=== PATIENT | male | born 1985 | race Hispanic/Latino ===

== ENCOUNTER 2018-08-25 04:10 | Emergency (ER) | payer SELFPAY ==
[2018-08-25 04:53] LABS: Absolute Lymphocytes (CBC) 2.9 K/uL (0.7-4.9); Absolute Monocytes 0.9 K/uL (0.1-1.3); Absolute Neutrophil 5.3 K/uL (1.8-8.0); Basophils % 0.6 % (0-1.3); Eosinophils % 3.4 % (0-4.4); Lymphocytes % 30.5 % (15.3-44.8); Monocytes % 9.4 % (3.3-12.3); RBC Red Blood Cell Count 4.91 M/uL (4.33-5.43)
[2018-08-25 05:00] LABS: Barbiturates NEGATIVE (NEGATIVE); Benzodiazepines NEGATIVE (NEGATIVE); Cocaine NEGATIVE (NEGATIVE); METHAMPHETAM NEGATIVE (NEGATIVE); Methadone NEGATIVE (NEGATIVE); Opiates NEGATIVE (NEGATIVE); Phencyclidine NEGATIVE (NEGATIVE); THC Cannibis NEGATIVE (NEGATIVE)
[2018-08-25 05:22] LABS: ALT/SGPT 25 U/L (12-78); AST/SGOT 19 U/L (15-37); Albumin 3.9 g/dL (3.4-5.0); Alkaline Phosphatase 65 U/L (45-117); BUN Blood Urea Nitrogen 14 mg/dL (7-18); Bicarbonate 29 mmol/L (21-32); Bilirubin Direct < 0.1 mg/dL (0-0.2); Bilirubin Total 0.4 mg/dL (0.2-1.0); Glucose Level 117 mg/dL (74-106); Magnesium 2.1 mg/dL (1.8-2.4); NT PRO-BNP 7 pg/mL (<125); Potassium 3.6 mmol/L (3.5-5.1); Protein, Total 7.5 g/dL (6.4-8.2); Sodium Level 141 mmol/L (136-145); Troponin (Emerg Dept Use Only) < 0.02 ng/mL (0.0-0.045)
[2018-08-25 05:31] LABS: Protime INR 1.05
--- NOTE | 2018-08-25 05:56 | EDPHYS ---
Physician Documentation [facility] Name: Stewart Lopez Age: 32 yrs Sex: Male : 1985 Arrival Date: 08/25/2018 Time: 04:17 Bed 4 Private MD: ED Physician Zachary Corbett HPI: 08/25 05:48 This 32 yrs old Male presents to ER via Ambulatory with complaints of Chest sunny Pain, Shortness Of Breath. 05:48 The patient or guardian reports chest pain that is located primarily in the substernal sunny area. The pain does not radiate. Associated signs and symptoms: Pertinent positives: shortness of breath. The chest pain is described as palpitations. Modifying factors: The symptoms are alleviated by nothing. the symptoms are aggravated by nothing. Severity of pain: At its worst the pain was mild in the emergency department the pain has resolved. The patient has not experienced similar symptoms in the past. Historical: - Allergies: 04:31 No Known Allergies; ak1 - Home Meds: 04:31 None [Active]; ak1 - PMHx: 04:31 None; ak1 - PSHx: 04:31 None; ak1 - Immunization history:: Adult Immunizations unknown. - Social history:: Smoking status: Patient/guardian denies using tobacco. - Ebola Screening: : No symptoms or risks identified at this time. - Family history:: not pertinent. ROS: 05:48 Constitutional: Negative for fever, chills, and weight loss, Eyes: Negative for injury, sunny pain, redness, and discharge, ENT: Negative for injury, pain, and discharge, Neck: Negative for injury, pain, and swelling, Respiratory: Negative for shortness of breath, cough, wheezing, and pleuritic chest pain, Abdomen/GI: Negative for abdominal pain, nausea, vomiting, diarrhea, and constipation, Back: Negative for injury and pain, : Negative for injury, bleeding, discharge, and swelling, MS/Extremity: Negative for injury and deformity, Skin: Negative for injury, rash, and discoloration, Neuro: Negative for headache, weakness, numbness, tingling, and seizure, Psych: Negative for depression, anxiety, suicide ideation, homicidal ideation, and hallucinations, Allergy/Immunology: Negative for hives, rash, and allergies, Endocrine: Negative for neck swelling, polydipsia, polyuria, polyphagia, and marked weight changes, Hematologic/Lymphatic: Negative for swollen nodes, abnormal bleeding, and unusual bruising. 05:48 Cardiovascular: Positive for palpitations. Exam: 05:48 Constitutional: This is a well developed, well nourished patient who is awake, alert, sunny and in no acute distress. Head/Face: Normocephalic, atraumatic. Eyes: Pupils equal round and reactive to light, extra-ocular motions intact. Lids and lashes normal. Conjunctiva and sclera are non-icteric and not injected. Cornea within normal limits. Periorbital areas with no swelling, redness, or edema. ENT: Nares patent. No nasal discharge, no septal abnormalities noted. Tympanic membranes are normal and external auditory canals are clear. Oropharynx with no redness, swelling, or masses, exudates, or evidence of obstruction, uvula midline. Mucous membranes moist. Neck: Trachea midline, no thyromegaly or masses palpated, and no cervical lymphadenopathy. Supple, full range of motion without nuchal rigidity, or vertebral point tenderness. No Meningismus. Chest/axilla: Normal chest wall appearance and motion. Nontender with no deformity. No lesions are appreciated. Cardiovascular: Regular rate and rhythm with a normal S1 and S2. No gallops, murmurs, or rubs. Normal PMI, no JVD. No pulse deficits. Respiratory: Lungs have equal breath sounds bilaterally, clear to auscultation and percussion. No rales, rhonchi or wheezes noted. No increased work of breathing, no retractions or nasal flaring. Abdomen/GI: Soft, non-tender, with normal bowel sounds. No distension or tympany. No guarding or rebound. No evidence of tenderness throughout. Back: No spinal tenderness. No costovertebral tenderness. Full range of motion. Male : Normal genitalia with no discharge or lesions. Skin: Warm, dry with normal turgor. Normal color with no rashes, no lesions, and no evidence of cellulitis. MS/ Extremity: Pulses equal, no cyanosis. Neurovascular intact. Full, normal range of motion. Neuro: Awake and alert, GCS 15, oriented to person, place, time, and situation. Cranial nerves II-XII grossly intact. Motor strength 5/5 in all extremities. Sensory grossly intact. Cerebellar exam normal. Normal gait. Psych: Awake, alert, with orientation to person, place and time. Behavior, mood, and affect are within normal limits. 05:51 Musculoskeletal/extremity: DVT Exam: No signs of deep vein thrombosis. no pain, no sunny swelling, no tenderness, negative Homans' sign noted on exam, no appreciated bluish discoloration, no erythema, no increased warmth. Vital Signs: 04:31 BP 128 / 68; Pulse 96; Resp 18; Temp 98.8(O); Pulse Ox 99% on R/A; Weight 72.57 kg (R); ak1 Height 5 ft. 5 in. (165.10 cm) (R); Pain 0/10; 05:15 BP 104 / 75; Pulse 75; Resp 18; Pulse Ox 100% on R/A; ea 06:21 BP 106 / 65; Pulse 66; Resp 18; Pulse Ox 98% ; ea 04:31 Body Mass Index 26.63 (72.57 kg, 165.10 cm) ak MDM: 04:23 Patient medically screened. [facility] 05:52 Data reviewed: vital signs, nurses notes, lab test result(s), EKG, radiologic studies, [facility] plain films. 08/25 04:34 Order name: Basic Metabolic Panel [facility] 08/25 04:34 Order name: CBC with Diff [facility] 08/25 04:34 Order name: LFT's [facility] 08/25 04:34 Order name: Magnesium; Complete Time: 05:51 ak 08/25 04:34 Order name: NT PRO-BNP; Complete Time: 05:51 [facility] 08/25 04:34 Order name: PT-INR; Complete Time: 05:51 [facility] 08/25 04:34 Order name: Troponin (emerg Dept Use Only); Complete Time: 05:51 [facility] 08/25 04:34 Order name: XRAY Chest (1 view) [facility] 08/25 04:34 Order name: UDS; Complete Time: 05:51 [facility] 08/25 04:35 Order name: Basic Metabolic Panel; Complete Time: 05:51 EDMS 08/25 04:35 Order name: CBC with Automated Diff; Complete Time: 05:51 EDMS 08/25 04:35 Order name: Liver (Hepatic) Function; Complete Time: 05:51 EDMS 08/25 04:39 Order name: Urine Dipstick--Ancillary (enter results) 2 08/25 04:34 Order name: EKG; Complete Time: 04:35 [facility] 08/25 04:34 Order name: Cardiac monitoring; Complete Time: 04:47 [facility] 08/25 04:34 Order name: EKG - Nurse/Tech; Complete Time: 04:47 [facility] 08/25 04:34 Order name: IV Saline Lock; Complete Time: 04:47 [facility] 08/25 04:34 Order name: Labs collected and sent; Complete Time: 04:47 [facility] 08/25 04:34 Order name: O2 Per Protocol; Complete Time: 04:47 [facility] 08/25 04:34 Order name: O2 Sat Monitoring; Complete Time: 04:48 ak1 Administered Medications: 06:12 Drug: Aspirin 162 mg Route: PO; ea 06:23 Follow up: Response: Medication administered at discharge. ea 06:12 Drug: Pepcid 20 mg Route: IVP; Site: right antecubital; ea 06:23 Follow up: Response: No adverse reaction; Pain is decreased ea Disposition: 08/25/18 05:55 Discharged to Home. Impression: Palpitations. - Condition is Stable. - Discharge Instructions: Palpitations, Aspirin and Your Heart, Palpitations, [id number]. - Prescriptions for Toprol XL 25 mg Oral Tablet - take 1 tablet by ORAL route once daily; 20 tablet. Pepcid 20 mg Oral Tablet - take 1 tablet by ORAL route 4 times per day; 20 tablet. - Medication Reconciliation Form, Thank You Letter, Antibiotic Education, Prescription Opioid Use, Work release form form. - Follow up: Private Physician; When: 2 - 3 days; Reason: Recheck today's complaints, Continuance of care, Re-evaluation by your physician. Follow up: [place] MD; When: 2 - 3 days; Reason: Recheck today's complaints, Continuance of care, Re-evaluation by your physician. - Problem is new. - Symptoms have improved. Signatures: Dispatcher [employer] Zachary Dacosta MD MD cha Krenek, Amber RN RN ak1 Frank Jeffery RN Mirian Correa RN RN ea Corrections: (The following items were deleted from the chart) 06:35 05:55 08/25/2018 05:55 Discharged to Home. Impression: Palpitations. Condition is ao Stable. Forms are Medication Reconciliation Form, Thank You Letter, Antibiotic Education, Prescription Opioid Use. Follow up: Private Physician; When: 2 - 3 days; Reason: Recheck today's complaints, Continuance of care, Re-evaluation by your physician. Follow up: [place]; When: 2 - 3 days; Reason: Recheck today's complaints, Continuance of care, Re-evaluation by your physician. Problem is new. Symptoms have improved. sunny
--- NOTE | 2018-08-25 05:56 | ER ---
Nurse's Notes [facility] Name: Stewart Lopez Age: 32 yrs Sex: Male : 1985 Arrival Date: 08/25/2018 Time: 04:17 Bed 4 Private MD: Diagnosis: Palpitations Presentation: 08/25 04:29 Presenting complaint: Patient states: at 0330 he woke with SOB and palpations which ak1 have since resolved. pt denies N/V. pt stated he has had s/s before with no dx but palpitations when exhausted. Transition of care: patient was not received from another setting of care. Onset of symptoms was August 25, 2018. Risk Assessment: Do you want to hurt yourself or someone else? Patient reports no desire to harm self or others. Care prior to arrival: None. 04:29 Method Of Arrival: Ambulatory ak1 04:29 Acuity: MYRNA 3 ak1 04:33 Initial Sepsis Screen: Does the patient meet any 2 criteria? No. Patient's initial ak1 sepsis screen is negative. Does the patient have a suspected source of infection? No. Patient's initial sepsis screen is negative. Triage Assessment: 04:31 General: Appears in no apparent distress. Behavior is calm, cooperative. Pain: Denies ak1 pain. EENT: No signs and/or symptoms were reported regarding the EENT system. Neuro: No deficits noted. Cardiovascular: Reports shortness of breath, palpitations since 0330. Respiratory: Reports shortness of breath at rest since 0330. GI: No signs and/or symptoms were reported involving the gastrointestinal system. : No signs and/or symptoms were reported regarding the genitourinary system. Derm: No signs and/or symptoms reported regarding the dermatologic system. Musculoskeletal: No signs and/or symptoms reported regarding the musculoskeletal system. Historical: - Allergies: 04:31 No Known Allergies; ak1 - Home Meds: 04:31 None [Active]; ak1 - PMHx: 04:31 None; ak1 - PSHx: 04:31 None; ak1 - Immunization history:: Adult Immunizations unknown. - Social history:: Smoking status: Patient/guardian denies using tobacco. - Ebola Screening: : No symptoms or risks identified at this time. - Family history:: not pertinent. Screenin:32 Abuse screen: Denies threats or abuse. Denies injuries from another. Nutritional ak1 screening: No deficits noted. Tuberculosis screening: No symptoms or risk factors identified. Fall Risk None identified. Assessment: 04:33 Pain: Pain does not radiate. Pain began 1 hour ago. ak1 04:44 General: Appears in no apparent distress. comfortable, Behavior is calm, cooperative, ao appropriate for age. Pain: Complains of pain in chest Pain currently is 53 out of 10 on a pain scale. Quality of pain is described as burning, Pain began 1 hour ago. Neuro: Level of Consciousness is awake, alert, obeys commands, Oriented to person, place, time, situation, Appropriate for age Moves all extremities. Full function Speech is normal, Facial symmetry appears normal. Cardiovascular: Reports chest pain, palpitations, Denies nausea, shortness of breath, syncope, vomiting, Capillary refill < 3 seconds Patient's skin is warm and dry. Respiratory: Airway is patent Respiratory effort is even, unlabored, Respiratory pattern is regular, symmetrical. GI: Abdomen is non-distended. : No signs and/or symptoms were reported regarding the genitourinary system. EENT: No signs and/or symptoms were reported regarding the EENT system. Derm: Skin is pink, warm \T\ dry. normal, Skin temperature is warm. Musculoskeletal: Circulation, motion, and sensation intact. Range of motion:. 06:33 Reassessment: DC instructions given to patient. Patient understand the POC and to ao follow up with PCP. Vital Signs: 04:31 BP 128 / 68; Pulse 96; Resp 18; Temp 98.8(O); Pulse Ox 99% on R/A; Weight 72.57 kg (R); ak1 Height 5 ft. 5 in. (165.10 cm) (R); Pain 0/10; 05:15 BP 104 / 75; Pulse 75; Resp 18; Pulse Ox 100% on R/A; ea 06:21 BP 106 / 65; Pulse 66; Resp 18; Pulse Ox 98% ; ea 04:31 Body Mass Index 26.63 (72.57 kg, 165.10 cm) ak1 ED Course: 04:17 Patient arrived in ED. ds1 04:23 Zachary Corbett MD is Attending Physician. sunny 04:29 Frank Jeffery RN is Primary Nurse. ao 04:30 Triage completed. ak1 04:31 Arm band placed on Patient placed in an exam room, on a stretcher, on pulse oximetry, ak1 Patient notified of wait time. 04:32 Patient has correct armband on for positive identification. Placed in gown. Bed in low ak1 position. Call light in reach. Side rails up X 1. Pulse ox on. NIBP on. 04:32 Patient maintains SpO2 saturation greater than 95% on room air. ak1 04:35 Inserted saline lock: 20 gauge in right antecubital area, using aseptic technique. ao Blood collected. 04:54 X-ray completed. Portable x-ray completed in exam room. Patient tolerated procedure kw well. 04:55 XRAY Chest (1 view) In Process Unspecified. EDNY 05:55 [place] MD is Referral Physician. sunny 06:34 No provider procedures requiring assistance completed. IV discontinued, intact, ao bleeding controlled, No redness/swelling at site. Pressure dressing applied. Administered Medications: 06:12 Drug: Aspirin 162 mg Route: PO; ea 06:23 Follow up: Response: Medication administered at discharge. ea 06:12 Drug: Pepcid 20 mg Route: IVP; Site: right antecubital; ea 06:23 Follow up: Response: No adverse reaction; Pain is decreased ea Outcome: 05:55 Discharge ordered by . sunny 06:34 Discharged to home ambulatory. ao 06:34 Condition: stable 06:34 Discharge instructions given to patient, Instructed on discharge instructions, follow up and referral plans. Demonstrated understanding of instructions, follow-up care, medications. 06:35 Patient left the ED. ao Signatures: Dispatcher [employer] EDNY Zachary Corbett MD MD cha Sanford, Meredith ds1 Darya Ann Amber, RN RN ak1 Frank Jeffery, RN Mirian Correa RN RN ea
[2018-08-25] MEDS ORDERED: ASPIRIN 81 MG CHEWABLE TABLET ONE (06:14)
[2018-08-25] MEDS ORDERED: FAMOTIDINE 20 MG/2 ML VIAL IV ONE (06:14)
--- NOTE | 2018-08-25 07:15 | EKG ---
Test Date: 2018-08-25 Test Time: 04:31:56 Oncology Physician Assistant: GEO MEASUREMENT RESULTS: Intervals: Rate: 85 CA: 134 QRSD: 86 QT: 358 QTc: 426 [place]: P: 57 CA: 134 QRS: 41 T: 37 INTERPRETIVE STATEMENTS: Normal sinus rhythm Normal ECG No previous ECG available for comparison Electronically Signed On 08-25-18 07:14:30 BUSINESS SYSTEMS DEVELOPER by Ivan Luz
[2018-08-25 07:50] LABS: Urine Blood NEGATIVE (NEG); Urine Glucose NEGATIVE (NEG); Urine Protein 1+ (NEG); Urine Specific Gravity 1.025 (1.005-1.030)
--- NOTE | 2018-08-25 08:42 | RAD REPORT ---
EXAM DESCRIPTION: RAD - Chest Single View - 08/25/2018 4:57 am CLINICAL HISTORY: PALPITATIONS Chest pain. COMPARISON: No comparisons FINDINGS: Portable technique limits examination quality. The lungs are grossly clear. The heart is normal in size. No displaced fractures. IMPRESSION: No acute intrathoracic process suspected.
== END 2018-08-25 06:35 | disposition home or self-care (01) ==
LOC: ER 04:10
DX: R00.2 Palpitations (principal); R07.9 Chest pain, unspecified; R06.02 Shortness of breath
CPT/HCPCS: 36415; 71045; 80048; 80076; 80307; 81003; 83735; 83880; 84484; 85025; 85610; 93005; 96374; 99284